=== PATIENT | female | born 1955 | race Caucasian/White ===

== ENCOUNTER 2018-11-06 07:07 | Observation (INO) | payer OTHER, BC ==
[~2018-11-06 07:07] MED LIST: CEFAZOLIN 2 GM/50 ML (PMX) 50 ML IVPB; SOD CHLORIDE 0.9% 1,000 ML IV
[2018-11-06] MEDS ORDERED: SOD CHLORIDE 0.9% 1,000 ML IV (10:00)
[2018-11-06] MEDS ORDERED: CEFAZOLIN 2 GM/50 ML (PMX) 50 ML IVPB (10:00)
[2018-11-06] MEDS ORDERED: MIDAZOLAM 1 MG/ML 2 ML INJ (12:47)
[2018-11-06] MEDS: ISOSULFAN BLUE 1% 5 ML INJ SC (13:13)
[2018-11-06] MEDS ORDERED: CEFAZOLIN 1 GM INJ (14:21)
[2018-11-06] MEDS ORDERED: PROPOFOL 20 ML (14:21)
[2018-11-06] MEDS ORDERED: LIDOCAINE 2% (SDV) 5 ML INJ (14:21)
[2018-11-06] MEDS ORDERED: ONDANSETRON 4 MG INJ (14:23)
[2018-11-06] MEDS ORDERED: HYDROCODONE/APAP (5/325) TAB PO (14:30)
[2018-11-06] MEDS ORDERED: DIPHENHYDRAMINE 25 MG CAP PO (14:30)
[2018-11-06] MEDS ORDERED: HYDROmorphONE 1 MG/ML SYG SC (14:30)
[2018-11-06] MEDS ORDERED: ACETAMINOPHEN 325 MG TAB PO (14:30)
[2018-11-06] MEDS ORDERED: ONDANSETRON 4 MG INJ IV ×2 (14:30→15:00)
[2018-11-06] MEDS ORDERED: FENTAnyl 50 MCG/ML VIAL IV (15:00)
[2018-11-06] MEDS ORDERED: hydrALAzine 20 MG INJ IV (15:00)
[2018-11-06] MEDS ORDERED: HYDROmorphONE 1 MG/5 ML IV SYRINGE IV (15:00)
[2018-11-06] MEDS ORDERED: METOCLOPRAMIDE 10 MG INJ IV (15:00)
[2018-11-06] MEDS ORDERED: MEPERIDINE 25 MG INJ IV (15:00)
[2018-11-06] MEDS ORDERED: LABETALOL HCL 20MG INJ IV (15:00)
[2018-11-06] MEDS ORDERED: DIPHENHYDRAMINE 50 MG INJ IV (15:00)
[2018-11-06] MEDS: HYDROmorphONE 1 MG/5 ML IV SYRINGE IV (16:07)
[2018-11-06] MEDS: D5W-0.45 NACL + KCL 20 MEQ 1,000 ML IV (20:04)
[2018-11-07] MEDS: D5W-0.45 NACL + KCL 20 MEQ 1,000 ML IV ×2 (00:07→06:45)
== END 2018-11-07 10:45 | disposition home or self-care (01) ==
LOC: SDS 07:07 → 2NE 18:15 → SDS 18:32 → 2NE 18:32
DX: D05.82 Other specified type of carcinoma in situ of left breast (principal); Z79.82 Long term (current) use of aspirin
CPT/HCPCS: 19281; 88307; 88342